=== PATIENT | female | born 1975 | race Two or more races ===

== ENCOUNTER → 2016-07-22 | Outpatient (CLI) | payer OTHER ==
[2016-07-22 14:20] LABS: Basophils # (A) 0.1 k/uL (0-0.2); Basophils % (A) 1 %; CH 32.5; CHCM 32.9; Eosinophils # (A) 0.1 k/uL (0-0.7); Eosinophils % (A) 2 %; HCT 40.4 % (34.0-46.0); HDW 2.06; HGB 13.1 gm/dL (11.4-16.0); Luc # (Auto) 0.13; Luc % (Auto) 2; Lymphocytes # (A) 1.5 k/uL (1.0-4.8); Lymphocytes % (A) 26 %; MCHC 32.3 g/dL (31.0-37.0); MCV 99.1 fL (80.0-100.0); Monocytes # (A) 0.3 k/uL (0-1.0); Monocytes % (A) 4 %; Neutrophils # (A) 3.8 k/uL (1.3-7.7); Neutrophils % (A) 65 %; RBC 4.07 m/uL (3.80-5.40); WBC 5.9 k/uL (3.8-10.6); WBC (Perox) 5.99
== END | disposition home or self-care (01) ==
LOC: LABPAT 13:37
PROVIDERS: ATTEND Obstetrics & Gynecology
DX: Z01.812 Encounter for preprocedural laboratory examination (principal); O03.9 Complete or unspecified spontaneous abortion without complication; Z3A.00 Weeks of gestation of pregnancy not specified
CPT/HCPCS: 85025; 86900; 86901

== ENCOUNTER 2016-07-23 06:02 | Day surgery (SDC) | payer OTHER ==
[~2016-07-23 06:02] MED LIST: DEXAMETHASONE SOD PHOSPHATE 10 MG/ML 1 ML VIAL IV ONE; HYDROmorphone 1 MG/ML 1 ML SYRINGE IVP PRN; LACTATED RINGERS 1,000 ML IV SCH; MIDAZOLAM 2 MG/2 ML VIAL IV PRN; ONDANSETRON 4 MG/2 ML VIAL IVP ONE; Pre Op ABX Message 1 EACH MISC MISCELLANE ONE
[2016-07-23] MEDS ORDERED: LIDOCAINE 1% 20 ML VIAL (10MG/ML) FOR IV START INTRADERMA ONE (06:37)
[2016-07-23] MEDS ORDERED: PROPOFOL 10 MG/ML 20 ML VIAL IV ONE (06:59)
[2016-07-23] MEDS ORDERED: LIDOCAINE 1% INJ 10MG/ML (20 ML MDV) ONE (06:59)
[2016-07-23] MEDS ORDERED: fentaNYL (PF) 50 MCG/ML 2 ML AMP ONE (06:59)
[2016-07-23] MEDS ORDERED: KETOROLAC 30 MG/ML 1 ML VIAL ONE (06:59)
[2016-07-23] MEDS ORDERED: MIDAZOLAM 2 MG/2 ML VIAL ONE (06:59)
--- NOTE | 2016-07-23 07:19 | P.OP ---
Date of Procedure: 07/23/16 Preoperative Diagnosis: Missed Ab, , advanced maternal age. Postoperative Diagnosis: Same, pathology pending Procedure(s) Performed: Suction dilatation and curettage of the uterus Anesthesia: GUERLINE Surgeon: Christine Lane Estimated Blood Loss (ml): 100 IV fluids (ml): 300 Urine output (ml): 100 Pathology: other (Products of conception) Condition: stable Disposition: PACU Description of Procedure: Patient is brought to the operating suite and a general anesthetic is administered without difficulty per the anesthesia staff. She's placed in the dorsal lithotomy position. The cervix, vagina, perineum are all prepped and draped in the usual sterile fashion. The appropriate timeout is performed to assure proper patient and procedural identification. Blood type is A+. Examination under anesthesia reveals a anteverted uterus, possibly 12 weeks' size, adnexa negative bilaterally. The weighted speculum was placed into the vagina. The bladder is drained for approximately 100 mL of clear yellow urine. The anterior lip of the cervix is gently grasped with a double-tooth tenaculum. The uterus sounds to a depth of 12 cm in the anteverted position. Cervix was gently and systematically dilated using Hanks dilators. An 8 curved sterile suction curette is placed to the dome of the fundus, and under appropriate suction pressures the uterus is curettaged. A medium sharp curette is used to assure that all products of conception had been removed. No intrauterine septa or defects are appreciated, no fibroids. The tenaculum was removed. The cervix is clean and dry. All sponge needle and enhancement counts are correct at the end of the procedure. Patient is brought back to recovery room in very good condition with stable vital signs including blood pressure 111/70, pulse 63. The products of conception tissue are sent to pathology in a fresh state, patient is wishing chromosomal analysis. Patient is given Toradol prior to leaving the operative suite. She will follow-up in the office with me in 2 weeks. Written instructions are provided.
[2016-07-23 07:29] VITALS: TEMP 97.8
[2016-07-23] MEDS ORDERED: Acetaminophen-Codeine 300-30mg TAB PO ONE (08:44)
[2016-07-23 08:55] VITALS: BP 125/74; PULSE 59; RESP 16
[2016-07-31 13:05] LABS: Mis test requested (Non-blood) Chromosome Analysis
== END 2016-07-23 09:29 | disposition home or self-care (01) ==
LOC: OR 06:02
PROVIDERS: ATTEND Obstetrics & Gynecology
DX: O02.1 Missed abortion (principal); G43.909 Migraine, unspecified, not intractable, without status migrainosus; Z79.899 Other long term (current) drug therapy; Z88.2 Allergy status to sulfonamides; Z88.8 Allergy status to other drugs, medicaments and biological substances
CPT/HCPCS: 86900; 86901; 88305; 59820; J2250; J1100; J2405; J2001; J3010; J1885; J2704; 88233; 88262

== ENCOUNTER → 2016-10-08 | Outpatient (CLI) | payer OTHER ==
[2016-10-09 07:28] LABS: Cardiolipin Ab IgG <9.0 GPL (<15); Cardiolipin Ab IgM <9.0 MPL (<12.5)
[2016-10-09 13:34] LABS: Protein C (Activity) 114 % (70 - 130); Protein S Antigen 98 % (50 - 140)
== END ==
LOC: LABWHC1 11:11
PROVIDERS: ATTEND Obstetrics & Gynecology Reproductive Endocrinology
DX: N96 Recurrent pregnancy loss (principal)
CPT/HCPCS: 36415; 81240; 81241; 81291; 83090; 85300; 85303; 85305; 85613; 85730; 86146; 86147

== ENCOUNTER 2016-11-16 11:39 | Inpatient (IN) | payer OTHER ==
[2016-11-16] MEDS ORDERED: SODIUM CHLORIDE 0.9% 1,000 ML IV STA ×2 (12:48→14:27)
[2016-11-16] MEDS ORDERED: HYDROmorphone 1 MG/ML 1 ML SYRINGE IVP STA (12:49)
[2016-11-16] MEDS ORDERED: ONDANSETRON 4 MG/2 ML VIAL IVP STA (12:49)
--- NOTE | 2016-11-16 12:53 | ED ---
General Adult HPI <Gamaliel Luna - Last Filed: 11/16/16 15:00> - General Source: patient, RN notes reviewed Mode of arrival: ambulatory Limitations: no limitations <Romulo Clarke - Last Filed: 11/16/16 15:44> - General Chief complaint: Abdominal Pain Stated complaint: Abd Pain Time Seen by Provider: 11/16/16 12:39 - History of Present Illness Initial comments: Patient 41-year-old female who presents emergency room today with a chief complaint of increased left lower quadrant pain. She does admit that she was given methotrexate on 11/06/2016 for a ectopic . She states she was doing well until last night started having increased pain to 2 of her oxycodone. States she was able to get to sleep. States she went to work and pain increased approximately 9 AM. She states she called her DISPATCHER REFINERY who is out of [facility] was advised to head to the emergency room for evaluation. Patient states she did not have a ride to go down to [place] so she came here to the nearest ER. She admits to pain left lower quadrant. States she felt lightheaded and dizzy earlier. Denies any other complaints currently. ( Romulo Clarke) - Related Data Home Medications Medication Instructions Recorded Confirmed Levothyroxine Sodium [Synthroid] 100 mcg PO DAILY 11/16/16 11/16/16 Allergies Allergy/AdvReac Type Severity Reaction Status Date / Time codeine Allergy Rash/Hives Verified 11/16/16 12:57 hydromorphone [From Dilaudid] Allergy Itching Verified 11/16/16 14:35 latex Allergy Itching Verified 11/16/16 12:57 medroxyprogesterone acetate Allergy Rash/Hives Verified 11/16/16 12:57 [From Provera] Sulfa (Sulfonamide Allergy Rash/Hives Verified 11/16/16 12:57 Antibiotics) adhesive AdvReac Unknown Unknown Verified 11/16/16 12:57 Review of Systems ROS Other: All systems not noted in ROS Statement are negative. <Gamaliel Luna - Last Filed: 11/16/16 15:00> ROS Other: All systems not noted in ROS Statement are negative. <Romulo Clarke - Last Filed: 11/16/16 15:44> ROS Statement: Those systems with pertinent positive or pertinent negative responses have been documented in the HPI. Past Medical History Past Medical History: Osteoarthritis (OA) Additional Past Medical History / Comment(s): ENVIRONMENTAL ALLERGIES., past hx. of GESTATIONAL DIABETES., THORACIC OUTLET SYNDROME., MIGRAINES. current miscarriage History of Any Multi-Drug Resistant Organisms: None Reported Additional Past Surgical History / Comment(s): FIRST RIB REMOVED FOR THORACIC OUTLET SYNDROME. cyst removed from sabianism Past Anesthesia/Blood Transfusion Reactions: No Reported Reaction Past Psychological History: No Psychological Hx Reported Smoking Status: Never smoker Past Alcohol Use History: None Reported Additional Past Alcohol Use History / Comment(s): . Past Drug Use History: None Reported - Past Family History Mother Family Medical History: No Reported History <Romulo Clarke - Last Filed: 11/16/16 15:44> General Exam <Gamaliel Luna - Last Filed: 11/16/16 15:00> Limitations: no limitations <Romulo Clarke - Last Filed: 11/16/16 15:44> - General Exam Comments Initial Comments: General: The patient is awake and alert, in no distress, and does not appear acutely ill. Eye: Pupils are equal, round and reactive to light, extra-ocular movements are intact. No nystagmus. There is normal conjunctiva bilaterally. No signs of icterus. Ears, nose, mouth and throat: There are moist mucous membranes and no oral lesions. Neck: The neck is supple, there is no tenderness or JVD. Cardiovascular: There is a regular rate and rhythm. No murmur, rub or gallop is appreciated. Respiratory: Lungs are clear to auscultation, respirations are non-labored, breath sounds are equal. No wheezes, stridor, rales, or rhonchi. Gastrointestinal: Normal appearance. Normal bowel sounds. Soft on palpation. Patient does have tenderness left lower quadrant. No Rebound tenderness. No guarding. Musculoskeletal: Normal ROM, no tenderness. Strength 5/5. Sensation intact. Pulses equal bilaterally 2+. Neurological: A&O x 3. CN II-XII intact, There are no obvious motor or sensory deficits. Coordination appears grossly intact. Speech is normal. Skin: Skin is warm and dry and no rashes or lesions are noted. Psychiatric: Cooperative, appropriate mood & affect, normal judgment. (Romulo Clarke) Course <Gamaliel Luna - Last Filed: 11/16/16 15:00> <Romulo Clarke - Last Filed: 11/16/16 15:44> Vital Signs 11/16/16 11/16/16 11/16/16 11:40 13:42 14:32 Temperature 98.4 F Pulse Rate 84 65 52 L Respiratory 20 18 16 Rate Blood Pressure 121/69 124/56 117/65 O2 Sat by Pulse 99 98 100 Oximetry 11/16/16 14:59 Temperature Pulse Rate 56 L Respiratory 16 Rate Blood Pressure 124/90 O2 Sat by Pulse 99 Oximetry - Reevaluation(s) Reevaluation #1: 11/16/16 13:50 Called in by nursing staff patient experiences some pain to the left side of her neck. She states feels like a spasm. She states she's had similar symptoms when she takes Imitrex for headaches at home. States usually last 5 minutes goes away. She does admit that this seems to be more intense. 11/16/16 13:55 Patient states that at this time experiencing some itching sensation to the back of her neck. Patient was given 50 mg of Benadryl 20 mg of Pepcid continue to be monitored closely here. Vitals are stable. 11/16/16 14:05 Patient reexamined at this time states that they pressure and pain to the left side of the neck has improved after medications of Benadryl, Pepcid, and Solu- Medrol. Patient about to begin ultrasound which is being done at bedside here in the emergency room by field operations technician. 11/16/16 14:40 Unofficial report read and does show a vascular area on the left ovary that may be consistent with ectopic there is free fluid present. Patient resting comfortably currently in stretcher. Vitals are stable. Case been discussed with attending physician Dr. Luna. 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 11/16/16 15:[address] is here in the ER to see patient. 11/16/16 15:38 Patient seen here in the emergency room by hyperplastic patient to the OR. ( Romulo Clarke) Medical Decision Making - Lab Data Result diagrams: 11/16/16 13:30 11/16/16 13:30 <Gamaliel Luna - Last Filed: 11/16/16 15:00> - Lab Data Result diagrams: 11/16/16 13:30 11/16/16 13:30 <VinceRomulo - Last Filed: 11/16/16 15:44> - Medical Decision Making Medical decision-making. This is a 41-year-old female scone the emergency room because of pain to left lower quadrant. Recently the patient was started on methotrexate and 6217 for ectopic . The patient had discomfort last night took 2 pain pills. Tonight this morning when she went to work she had discomfort and spotting. She's come the emergency room. In emergency room the patient was hydrated. Her vital signs show temperature 90.8 pulse 52 respiratory rate 16 pulse ox on percent room air blood pressure 117/65. Labs show white count of 5.4 hemoglobin 12.7 medical 39, potassium 4.0 with a BUN 15 creatinine 0.57 and GFR greater than 60. Glucose 105. Beta is 4768. No previous betas available. Patient did have an ultrasound examination was found to be tender especially in the left lower quadrant. The patient's ultrasound showed adnexa; with free fluid in the posterior cul-de-sac, the right adnexa measuring 3.9 x 2.9 0.3 0.3 irregular complex nonvascular area. Left adnexa 3.8 -13.4 cm hypoechoic vascular area, possible left ovary with complex mass and there is a presence of free fluid. As interpreted by Dr. pyle. The case discussed with Dr. Torres she'll see the patient in the emergency room. can take morphine she had been given Dilaudid 1 mg IV caused a reaction that needed to be treated with IV Benadryl, Pepcid and Solu-Medrol. The itchiness and rash went away. Patient persists in having discomfort to the left lower quadrant. Dr. Luna (Gamaliel Luna) - Lab Data Lab Results 11/16/16 11/16/16 11/16/16 Range/Units 13:30 13:30 13:30 WBC 5.4 (3.8-10.6) k/uL RBC 3.92 (3.80-5.40) m/uL Hgb 12.7 (11.4-16.0) gm/dL Hct 39.5 (34.0-46.0) % MCV 101.0 H (80.0-100.0) fL MCH 32.5 (25.0-35.0) pg MCHC 32.2 (31.0-37.0) g/dL RDW 12.3 (11.5-15.5) % Plt Count 209 (150-450) k/uL Neutrophils % 67 % Lymphocytes % 23 % Monocytes % 6 % Eosinophils % 1 % Basophils % 1 % Neutrophils # 3.6 (1.3-7.7) k/uL Lymphocytes # 1.2 (1.0-4.8) k/uL Monocytes # 0.3 (0-1.0) k/uL Eosinophils # 0.1 (0-0.7) k/uL Basophils # 0.0 (0-0.2) k/uL Sodium 140 (137-145) mmol/L Potassium 4.0 (3.5-5.1) mmol/L Chloride 103 (98-107) mmol/L Carbon Dioxide 25 (22-30) mmol/L Anion Gap 12 mmol/L BUN 15 (7-17) mg/dL Creatinine 0.57 (0.52-1.04) mg/dL Est GFR (MDRD) Af Amer >60 (>60 ml/min/1.73 sqM) Est GFR (MDRD) Non-Af >60 (>60 ml/min/1.73 sqM) Glucose 105 H (74-99) mg/dL Calcium 9.6 (8.4-10.2) mg/dL Total Bilirubin 0.5 (0.2-1.3) mg/dL AST 20 (14-36) U/L ALT 25 (9-52) U/L Alkaline Phosphatase 45 (38-126) U/L Total Protein 7.4 (6.3-8.2) g/dL Albumin 4.4 (3.5-5.0) g/dL HCG, Quant 4768.9 mIU/mL Urine Color Yellow Urine Appearance Clear (Clear) Urine pH 7.0 (5.0-8.0) Ur Specific [place] 1.009 (1.001-1.035) Urine Protein Negative (Negative) Urine Glucose (UA) Negative (Negative) Urine Ketones Negative (Negative) Urine Blood Moderate H (Negative) Urine Nitrite Negative (Negative) Urine Bilirubin Negative (Negative) Urine Urobilinogen <2.0 (<2.0) mg/dL Ur Leukocyte Esterase Trace H (Negative) Urine RBC 142 H (0-5) /hpf Urine WBC 11 H (0-5) /hpf Ur Squamous Epith Cells 2 (0-4) /hpf Urine Bacteria Rare H (None) /hpf Urine Mucus Rare H (None) /hpf Disposition <Gamaliel Luna - Last Filed: 11/16/16 15:00> Time of Disposition: 15:42 <Romulo Clarke - Last Filed: 11/16/16 15:44> Clinical Impression: Ectopic Disposition: ADMITTED IP TO THIS HOSP Condition: Stable Referrals: Christine Lane MD [STAFF PHYSICIAN] - 1-2 days
[2016-11-16 13:49] LABS: Basophils % (A) 1 %; CH 33.1; CHCM 32.9; Eosinophils # (A) 0.1 k/uL (0-0.7); Eosinophils % (A) 1 %; HCT 39.5 % (34.0-46.0); HDW 2.02; HGB 12.7 gm/dL (11.4-16.0); Luc # (Auto) 0.12; Luc % (Auto) 2; Lymphocytes # (A) 1.2 k/uL (1.0-4.8); Lymphocytes % (A) 23 %; MCH 32.5 pg (25.0-35.0); MCHC 32.2 g/dL (31.0-37.0); Mean Platelet Volume 7.3; Monocytes # (A) 0.3 k/uL (0-1.0); Monocytes % (A) 6 %; Neutrophils # (A) 3.6 k/uL (1.3-7.7); Neutrophils % (A) 67 %; RBC 3.92 m/uL (3.80-5.40); RDW 12.3 % (11.5-15.5); WBC 5.4 k/uL (3.8-10.6); WBC (Perox) 5.49
[2016-11-16 13:53] LABS: Appearance,Urine Clear (Clear); Bacteria,Urine Rare /hpf; Bilirubin,Urine Negative (Negative); Glucose,Urine (UA) Negative (Negative); Ketones,Urine Negative (Negative); Leukocyte Esterase,Urine Trace (Negative); Mucus,Urine Rare /hpf; Nitrite,Urine Negative (Negative); Particle Count 2874; Protein,Urine Negative (Negative); RBC,Urine 142 /hpf (0-5); Specific Gravity,Urine 1.009 (1.001-1.035); Squamous Epithelial Cell,Urine 2 /hpf (0-4); UA Billing (MACRO vs. MICRO) MICRO; Urobilinogen,Urine <2.0 mg/dL (<2.0); WBC,Urine 11 /hpf (0-5)
[2016-11-16] MEDS ORDERED: FAMOTIDINE 20 MG/2 ML VIAL IV STA (13:54)
[2016-11-16] MEDS ORDERED: diphenhydrAMINE 50 MG/ML 1 ML VIAL IVP STA (13:54)
[2016-11-16] MEDS ORDERED: methylPREDNISolone SOD SUCCI 125 MG/2 ML VIAL IV STA (13:57)
[2016-11-16 14:06] LABS: ALT 25 U/L (9-52); AST 20 U/L (14-36); Alkaline Phosphatase 45 U/L (38-126); Anion Gap 12 mmol/L; Blood Urea Nitrogen 15 mg/dL (7-17); Calcium 9.6 mg/dL (8.4-10.2); Carbon Dioxide 25 mmol/L (22-30); Chloride 103 mmol/L (98-107); Glucose 105 mg/dL (74-99); Non-African American GFR(MDRD) >60 (>60 ml/min/1.73 sqM); Sodium 140 mmol/L (137-145); Total Bilirubin 0.5 mg/dL (0.2-1.3); Total Protein 7.4 g/dL (6.3-8.2)
[2016-11-16 14:22] LABS: HCG,Quantitative Serum 4768.9 mIU/mL
--- NOTE | 2016-11-16 14:43 | US ---
EXAMINATION TYPE: US OB <=14 wks transvag DATE OF EXAM: 11/16/2016 COMPARISON: NONE CLINICAL HISTORY: Pain. History of ectopic, patient was given Methotrexate on 11/06/16, left pelvic p ain and spotting x 2 days, 7, para 2, miscarriage 3, ectopic 2 EXAM PERFORMED: Transvaginal (TV) and Transabdominal (TA) EXAM MEASUREMENTS: GESTATIONAL AGE / DATING Physician Established: Not established Dates by LMP: (5 weeks/2 days) EDC: 07/17/2016 Dates by First Scan: No previous Dates by Current Scan for: No IUP seen at this time MATERNAL ANATOMY Uterus: 7.7 x 3.7 x 4.4cm, anteverted Endometrium: 0.6cm Right Ovary: not seen with certainty at this time Left Ovary: not seen with certainty at this time Post CDS / Adnexa: free fluid in posterior cul-de-sac, right adnexa: 3.9 x 2.9 x 3.3cm irregular comp iveth non vascular area, left adnexa: 3.8 x 2.1 x 3.4cm hypoechoic vascular area, possible left ovary w ith complex mass Presence of free fluid: yes GESTATION / SURVEY IUP: No IUP seen at this time Date of LMP: 10/10/2016 Beta HcG (if available): 4,768.9 No IUP seen at this time, free fluid in posterior cul-de-sac, right adnexa: 3.9 x 2.9 x 3.3cm irregul ar complex non vascular area, left adnexa: 3.8 x 2.1 x 3.4cm hypoechoic vascular area, possible left ovary with complex mass IMPRESSION: No intrauterine identified. Free fluid is seen within the cul-de-sac with 3.9 cm irregular complex right adnexal mass and 3.8 cm possible left adnexal mass. If there is a positive beta hCG ect opic would be within the differential diagnosis. Otherwise consider neoplasms of the ovary. Correlate with serial beta hCG and pelvic ultrasound.
[2016-11-16] MEDS: SODIUM CHLORIDE 0.9% 1,000 ML IV ONE ×2 (15:57→20:42)
--- NOTE | 2016-11-16 16:05 | P.HPOB ---
History of Present Illness H&P Date: 11/16/16 Chief Complaint: Severe abdominal and pelvic pain This is a 41-year-old white female 7 para 2041 with a known left ectopic ., Treated by methotrexate intramuscularly on 10/31/2016. Patient is being followed by Dr. Alex Spann at [facility], infertility specialist. Patient presents with severe abdominal pain which woke her up at 1:30 this morning. She took 2 hydrocodone, went back to bed. She attempted to go to work this morning but instead came to the emergency room with severe unrelenting bilateral lower quadrant pain. She states the pain is worse with movement. Ultrasound today reveals fluid in the cul-de-sac, complex mass of the left ovary measuring 3.8 x 2.1 x 3.4 cm, along with an irregular complex mass of the right ovary 3.9 x 2.9 x 3.3 cm. Patient last had fluid at 0645, eggs and toes. She had black coffee at 9:00 this morning but has been nothing by mouth since that time. She also discusses increasing pelvic pressure , "as if I have to p.m." Past medical history is significant for migraine headaches, thoracic syndrome, and recurrent miscarriages. Past surgical history suction D&C for missed AB 2, ribs removed for thoracic outlet syndrome, breast reduction. Family history significant for diabetes, glaucoma and hypothyroidism. Current medications vitamins daily. ALLERGIES include codeine to which reports a rash and itching, Provera to which she reports a rash and itching, sulfa medications to which reports a rash and hives, and seasonal ALLERGIES. 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 Past obstetric history is significant for 2 spontaneous vaginal deliveries, 3 spontaneous miscarriages, 1 ectopic , laterality uncertain. On exam this is a pleasant white female who is 5 foot 6 inches, 140 pounds, blood pressure 124/90, pulse 56, respirations 16, 99% O2 saturation. HEENT examination is negative. Breast exam is negative. Cardiac exam reveals regular rate and rhythm without murmur click or rub. Chest is clear to auscultation in all virgen anteriorly and posteriorly. Abdomen is slightly distended, she has severe pain 9 out of 10 in both lower quadrants with rebound noted. Pelvic exam reveals a small mobile cervix, uterus is mobile midline and small, bilateral adnexal regions are quite tender, left greater than right, with rebound and guarding noted. Extremities reveal no edema. Labs include beta of 4768, blood type A+, hemoglobin 12.7. Impression: Suspected left ectopic ruptured . Long-standing history of infertility, but history of previous ectopic also noted. Plan: I have discussed the case with Dr. Alex Spann at [facility], infertility specialists. He supports the plan for mini laparotomy, left salpingectomy. I have discussed this with the patient in detail, risks and benefits of surgery are reviewed. She understands our discussion and consents to left salpingectomy and surgery as deemed necessary. The risks of anesthesia, bleeding, infection, perforation or damage to other pelvic organs as well as bowel and bladder are all reviewed. I will not attempt this case laparoscopically secondary to the high likelihood of hemoperitoneum. Past Medical History Past Medical History: Osteoarthritis (OA) Additional Past Medical History / Comment(s): ENVIRONMENTAL ALLERGIES., past hx. of GESTATIONAL DIABETES., THORACIC OUTLET SYNDROME., MIGRAINES. current miscarriage History of Any Multi-Drug Resistant Organisms: None Reported Additional Past Surgical History / Comment(s): FIRST RIB REMOVED FOR THORACIC OUTLET SYNDROME. cyst removed from congregational Past Anesthesia/Blood Transfusion Reactions: No Reported Reaction Past Psychological History: No Psychological Hx Reported Smoking Status: Never smoker Past Alcohol Use History: None Reported Additional Past Alcohol Use History / Comment(s): . Past Drug Use History: None Reported - Past Family History Mother Family Medical History: No Reported History Medications and Allergies Home Medications Medication Instructions Recorded Confirmed Type Levothyroxine Sodium [Synthroid] 100 mcg PO DAILY 11/16/16 11/16/16 History Allergies Allergy/AdvReac Type Severity Reaction Status Date / Time codeine Allergy Rash/Hives Verified 11/16/16 12:57 hydromorphone [From Dilaudid] Allergy Itching Verified 11/16/16 14:35 latex Allergy Itching Verified 11/16/16 12:57 medroxyprogesterone acetate Allergy Rash/Hives Verified 11/16/16 12:57 [From Provera] Sulfa (Sulfonamide Allergy Rash/Hives Verified 11/16/16 12:57 Antibiotics) adhesive AdvReac Unknown Unknown Verified 11/16/16 12:57 Exam - Vital Signs Vital signs: Vital Signs Temp Pulse Resp BP Pulse Ox 11/16/16 14:59 56 L 16 124/90 99 11/16/16 14:32 52 L 16 117/65 100 11/16/16 13:42 65 18 124/56 98 11/16/16 11:40 98.4 F 84 20 121/69 99 Intake and Output 11/16/16 11/16/16 11/16/16 06:59 14:59 22:59 Other: Weight 68.039 kg Patient Weight 11/17/16 06:59 Weight 68.039 kg See full dictation under HPI Results Result Diagrams: 11/16/16 13:30 11/16/16 13:30 Abnormal Lab Results - Last 24 Hours (Table) 11/16/16 11/16/16 11/16/16 Range/Units 13:30 13:30 13:30 MCV 101.0 H (80.0-100.0) fL Glucose 105 H (74-99) mg/dL Urine Blood Moderate H (Negative) Ur Leukocyte Esterase Trace H (Negative) Urine RBC 142 H (0-5) /hpf Urine WBC 11 H (0-5) /hpf Urine Bacteria Rare H (None) /hpf Urine Mucus Rare H (None) /hpf Assessment and Plan Plan: For mini laparotomy, left salpingectomy, possible surgery on the right tube, surgery as deemed necessary. Time with Patient: Greater than 30
[2016-11-16] MEDS ORDERED: KETOROLAC 30 MG/ML 1 ML VIAL ONE (16:23)
[2016-11-16] MEDS ORDERED: GLYCOPYRROLATE 0.2 MG/ML 2 ML VIAL ONE (16:23)
[2016-11-16] MEDS ORDERED: MIDAZOLAM 2 MG/2 ML VIAL ONE (16:23)
[2016-11-16] MEDS ORDERED: ROCURONIUM BROMIDE 10 MG/ML 10 ML VIAL IV ONE (16:23)
[2016-11-16] MEDS ORDERED: LIDOCAINE 1% INJ 10MG/ML (20 ML MDV) ONE (16:23)
[2016-11-16] MEDS ORDERED: SODIUM CHLORIDE 0.9% 50 ML with ceFAZolin 2,000 MG IV ONE ×2 (16:23)
[2016-11-16] MEDS ORDERED: ceFAZolin 1,000 MG VIAL ONE (16:23)
[2016-11-16] MEDS ORDERED: ONDANSETRON 4 MG/2 ML VIAL ONE (16:23)
[2016-11-16] MEDS ORDERED: PROPOFOL 10 MG/ML 20 ML VIAL IV ONE (16:23)
[2016-11-16] MEDS ORDERED: SUCCINYLCHOLINE CHLORIDE 100 MG/5 ML SYR IV ONE (16:23)
[2016-11-16] MEDS ORDERED: fentaNYL (PF) 50 MCG/ML 2 ML AMP ONE (16:23)
[2016-11-16] MEDS ORDERED: NEOSTIGMINE 1 MG/ML 10 ML VIAL ONE (16:23)
[2016-11-16] MEDS ORDERED: SODIUM CHLORIDE 0.9% 1,000 ML IV ONE ×2 (16:45)
[2016-11-16] MEDS ORDERED: LACTATED RINGERS 1,000 ML IV ONE (17:04)
[2016-11-16] MEDS ORDERED: ZOLPIDEM 5 MG TAB PO PRN (17:09)
[2016-11-16] MEDS ORDERED: METOCLOPRAMIDE 5 MG/ML 2 ML VIAL IVP PRN (17:09)
[2016-11-16] MEDS ORDERED: ONDANSETRON 4 MG/2 ML VIAL IVP PRN (17:09)
[2016-11-16] MEDS ORDERED: SIMETHICONE 80 MG CHEWABLE PO PRN (17:09)
[2016-11-16] MEDS ORDERED: diphenhydrAMINE 50 MG/ML 1 ML VIAL IVP PRN (17:09)
--- NOTE | 2016-11-16 17:09 | P.OP ---
Date of Procedure: 11/16/16 Preoperative Diagnosis: Suspected left ruptured ectopic Postoperative Diagnosis: Hemoperitoneum, ruptured left ectopic Procedure(s) Performed: Minilaparotomy, left salpingectomy Implants: Anesthesia: MINDAA Surgeon: Christine Lane Estimated Blood Loss (ml): 300 IV fluids (ml): 1,200 Urine output (ml): 450 Pathology: other (Left fallopian tube) Condition: stable Disposition: PACU Indications for Procedure: Operative Findings: Description of Procedure: Patient is brought to the operating suite where a general anesthetic is administered. She's placed in the dorsal supine position. The abdomen is prepped and draped in usual sterile fashion. The appropriate timeout is performed to assure proper patient and procedural identification. 2 g of Ancef are given. Pierce catheter is placed to direct drainage. A low transverse suprapubic incision is made approximately 5 cm in length. Bovie catheter is used to take down the incision through the subcutaneous tissue which is approximately 3-4 cm deep. Fascia is isolated, scored, and extended bilaterally with curved Li scissors. Peritoneum is next identified and incised. Upon entering the peritoneal cavity approximate 300 mL of blood and clot are encountered. The abdomen is gently packed with the aid of the O'Abimael -O'Wells retractor and sterile sponges. The left fallopian tube is grasped at its base, walked up with [place] clamps and the ectopic is identified. A Ada clamp was used across the tube and through the mesal salpinx and the left fallopian tube is removed and sent to pathology for evaluation. The pedicle is tied with a 0 Vicryl suture, flashed, and retied for excellent hemostasis. The left ovary appears normal to inspection. At this time the pelvis was generously irrigated. The right fallopian tube and ovary are visualized in their entirety and appeared completely normal to inspection. The uterus itself is small, smooth, no evidence of fibroid tumors. There is no evidence of pelvic endometriosis. When I am satisfied that the pelvis is clean and dry, a piece of Interceed is used to wrap around the base of the left ovary across the area of surgery to avoid adhesion formation. Peritoneum was allowed to close by secondary intention. The fascia is closed in a running stitch of 0 Vicryl suture. Subcutaneous tissue is irrigated, noted to be clean and dry. It is reapproximated with 3-0 Vicryl in a running fashion. 4-0 undyed Vicryl is used in a subcuticular manner for final skin closure. Steri-Strips and Mastisol are applied to the wound. Dressing is applied. Pierce is noted to be draining clear urine. Patient is brought back to recovery room in very good condition with stable vital signs including a pulse of 57, blood pressure 120/70, 100% O2 saturation. Blood type is Rh+, no RhIg necessary.
[2016-11-16] MEDS ORDERED: NALOXONE 0.4 MG/ML 1 ML VIAL IV PRN ×2 (17:11→17:12)
[2016-11-16] MEDS ORDERED: HYDROmorphone PCA 5 MG/25 ML SYRINGE IV PRN (17:12)
[2016-11-16] MEDS ORDERED: MORPHINE SULFATE 4 MG/ML SYRINGE IV PRN (17:16)
[2016-11-16] MEDS ORDERED: LACTATED RINGERS 1,000 ML IV SCH (17:30)
[2016-11-16] MEDS: MORPHINE SULFATE 2 MG/ML SYRINGE IV PRN ×5 (17:35→17:55)
[2016-11-16] MEDS: MEPERIDINE 50 MG/ML SYRINGE IVP ONE ×2 (18:02→18:18)
[2016-11-16] MEDS: MORPHINE PCA 30 MG/30 ML SYRINGE IV PRN (19:31)
[2016-11-16 22:09] VITALS: BMI 23.5
[2016-11-16] MEDS: KETOROLAC 30 MG/ML 1 ML VIAL IVP PRN (23:56)
[2016-11-17] MEDS: KETOROLAC 30 MG/ML 1 ML VIAL IVP PRN ×2 (06:28→12:51)
[2016-11-17] MEDS: LEVOTHYROXINE 100 MCG TAB PO SCH (06:28)
--- NOTE | 2016-11-17 07:36 | P.DS ---
Providers Date of admission: 11/16/16 15:48 Expected date of discharge: 11/17/16 Attending physician: Christine Lane Primary care physician: [facility] Course: This is a 41-year-old white female who presented to the emergency room with a known left ectopic , status post methotrexate treatment through [facility] 10 days ago, with severe abdominal pain. Workup including ultrasound was consistent with ruptured ectopic and the decision was made to proceed with mini laparotomy. I discussed the case with Dr. Alex Spann and we elected to proceed with left salpingectomy. Please see my dictated history and physical for details. Patient was taken to the operating room, a small low transverse incision was made in the left salpingectomy was performed. There was blood in the pelvis upon entering, approximate 300 mL's. Left ovary appeared normal, right tube and ovary appeared normal, uterus was within normal limits. No obvious evidence of adhesions or endometriosis. The stump of the left tube was wrapped gently with Interceed and placed back into the pelvis. Please see my dictated operative note for details. This morning the patient appears well. She is voiding, ambulating, passing flatus without difficulty. Vital signs are stable and she is afebrile. Pain is well-controlled with ibuprofen, incision is clean and dry, intact, Steri- Strips applied. There is minimal abdominal tenderness, no rebound or guarding. Patient will be discharged home later today. I have reminded her no intercourse , tampons or douching. She will use ibuprofen products or Aleve as needed for pain [id number]. I've asked her to call me with any fevers shakes or chills, foul smelling vaginal drainage, with any redness drainage or bleeding of the incision, with any pain not alleviated by [id number] products, or indeed with any concerns. No heavy lifting, no driving for 2 weeks. She will follow-up with me in the office in 2 weeks. Patient Condition at Discharge: Good Plan - Discharge Summary New Discharge Prescriptions: No Action Levothyroxine Sodium [Synthroid] 100 mcg PO DAILY Discharge Medication List Levothyroxine Sodium [Synthroid] 100 mcg PO DAILY 11/16/16 [History] Follow up Appointment(s)/Referral(s): Christine Lane MD [STAFF PHYSICIAN] - 2 Weeks Patient Instructions/Handouts: Salpingectomy (GEN) Discharge Disposition: HOME SELF-CARE
[2016-11-17] MEDS ORDERED: HYDROcodone/APAP 5-325MG 1 EACH TAB PO PRN ×2 (11:20)
[2016-11-17] MEDS ORDERED: hydrOXYzine HCL 50 MG/ML 1 ML VIAL IM ONE (14:45)
[2016-11-17 16:15] LABS: Basophils % (A) 0 %; CH 33.1; CHCM 33.6; Eosinophils # (A) 0.2 k/uL (0-0.7); Eosinophils % (A) 1 %; HCT 33.1 % (34.0-46.0); HDW 2.16; HGB 11.2 gm/dL (11.4-16.0); Luc # (Auto) 0.17; Luc % (Auto) 1; Lymphocytes # (A) 1.5 k/uL (1.0-4.8); Lymphocytes % (A) 12 %; MCH 33.7 pg (25.0-35.0); MCV 99.1 fL (80.0-100.0); Mean Platelet Volume 7.6; Monocytes # (A) 0.6 k/uL (0-1.0); Monocytes % (A) 4 %; Neutrophils # (A) 10.6 k/uL (1.3-7.7); Neutrophils % (A) 81 %; RBC 3.34 m/uL (3.80-5.40); WBC (Perox) 13.62
--- NOTE | 2016-11-17 16:37 | P.PN ---
Subjective Principal diagnosis: Severe abdominal pain This morning patient felt well, pain was minimal. Plan was for discharge home. She ambulated the hallways several hours ago without issue. Upon reentering the bed, she began to have abdominal pain. She states that the past several hours the pain has increased to 10 out of 10. Toradol has been given, [place] has been given, 75 mg of Vistaril are given. Objective - Vital Signs Vital signs: Vital Signs Temp 97.8 F 11/17/16 13:20 Pulse 53 L 11/17/16 13:20 Resp 16 11/17/16 13:20 BP 121/65 11/17/16 13:20 Pulse Ox 98 11/17/16 13:20 Intake & Output 11/16/16 11/17/16 11/17/16 18:59 06:59 18:59 Intake Total 1600 450 Output Total 200 2800 500 Balance 1400 -2800 -50 Weight 68.039 kg 68.039 kg Intake: IV 1600 Oral 450 Output: Urine 200 2800 500 Uretheral (Pierce) 1100 Other: Voiding Method Indwelling Catheter # Voids 3 - Constitutional General appearance: Present: average body habitus, cooperative, severe distress - EENT Eyes: Present: PERRLA ENT: Present: hearing grossly normal - Neck Neck: Present: normal ROM - Respiratory Respiratory: bilateral: CTA - Cardiovascular Rhythm: regular - Gastrointestinal Gastrointestinal Comment(s): Abdomen is softly distended. Incision is clean and dry, well approximated. There is tenderness in bilateral lower quadrants, 10 out of 10. There is guarding as well as rebound. No CVA tenderness. General gastrointestinal: Present: decreased bowel sounds, distended, tenderness Localized gastrointestinal: tender: RLQ, LLQ, guarding: RLQ, LLQ, rebound: RLQ, LLQ - Integumentary Integumentary: Present: normal - Neurologic Neurologic: Present: CNII-XII intact - Musculoskeletal Musculoskeletal: Present: strength equal bilaterally - Psychiatric Psychiatric: Present: A&O x's 3, appropriate affect, intact judgment & insight - Labs CBC & Chem 7: 11/17/16 15:57 11/16/16 13:30 Labs: Abnormal Lab Results - Last 24 Hours (Table) 11/17/16 Range/Units 15:57 WBC 13.0 H (3.8-10.6) k/uL RBC 3.34 L (3.80-5.40) m/uL Hgb 11.2 L (11.4-16.0) gm/dL Hct 33.1 L (34.0-46.0) % Neutrophils # 10.6 H (1.3-7.7) k/uL Microbiology - Last 24 Hours (Table) 11/16/16 13:30 Urine Culture - Preliminary Urine,Voided Assessment and Plan Plan: At this time I believe the patient has developed bleeding from the previous surgical site. We will return to the operating room for exploratory laparotomy , repair of any surgical defects noted. We will use the same minilaparotomy incision as yesterday. Again reviewed with the patient the risks benefits and alternatives of this plan. All questions answered. Stat CBC has been drawn, pending at this time. Anesthesia staff aware. Patient has been nothing by mouth since approximately 8 AM. Time with Patient: Greater than 30
[2016-11-17] MEDS ORDERED: ACETAMINOPHEN TAB 325 MG TAB PO PRN (17:11)
[2016-11-17] MEDS ORDERED: SUCCINYLCHOLINE CHLORIDE 100 MG/5 ML SYR IV ONE (17:21)
[2016-11-17] MEDS ORDERED: LIDOCAINE 1% INJ 10MG/ML (20 ML MDV) ONE (17:21)
[2016-11-17] MEDS ORDERED: ROCURONIUM BROMIDE 10 MG/ML 10 ML VIAL IV ONE (17:21)
[2016-11-17] MEDS ORDERED: NEOSTIGMINE 1 MG/ML 10 ML VIAL ONE (17:21)
[2016-11-17] MEDS ORDERED: GLYCOPYRROLATE 0.2 MG/ML 2 ML VIAL ONE (17:21)
[2016-11-17] MEDS ORDERED: fentaNYL (PF) 50 MCG/ML 2 ML AMP ONE (17:21)
[2016-11-17] MEDS ORDERED: MIDAZOLAM 2 MG/2 ML VIAL ONE (17:21)
[2016-11-17] MEDS ORDERED: KETOROLAC 30 MG/ML 1 ML VIAL ONE (17:21)
[2016-11-17] MEDS ORDERED: PROPOFOL 10 MG/ML 20 ML VIAL IV ONE (17:21)
[2016-11-17] MEDS ORDERED: SODIUM CHLORIDE 0.9% 50 ML with ceFAZolin 2,000 MG IV ONE ×2 (17:30)
[2016-11-17] MEDS ORDERED: LACTATED RINGERS 1,000 ML IV ONE (17:39)
--- NOTE | 2016-11-17 18:26 | P.OP ---
Date of Procedure: 11/17/16 Preoperative Diagnosis: Severe abdominal pain 24 hours from left salpingectomy, surgical abdomen Postoperative Diagnosis: Right rectus abdominal muscle bleeder, left round ligament defect. Otherwise negative pelvis and abdomen Procedure(s) Performed: Exploratory laparotomy, repair possibly iatrogenic left round ligament defect, repair of rectus abdominal wall bleeder Implants: Anesthesia: GETA Surgeon: Christine Lane Back Tender Cylinder #1: Amarjit Espinosa Estimated Blood Loss (ml): 75 IV fluids (ml): 650 Urine output (ml): 100 Pathology: none sent Condition: stable Disposition: PACU Indications for Procedure: Operative Findings: Description of Procedure: Patient is brought to the operating room where a general anesthetic is administered. 2 g of Ancef were given. The appropriate timeout was performed to assure proper patient and procedural identification. Latex free Pierce catheter is placed to direct drainage. The abdomen is prepped and draped in usual sterile fashion. Steri-Strips are removed. The previously placed subcuticular stitch is opened. Upon opening the subcutaneous cavity there is approximately 25 mL of fresh blood. The fascial stitches identified and opened as well. Upon opening the fascia there is approximately 50 mL of red blood and small dark clots encountered. The O'Abimael-O'Wells retractor is placed into the abdomen and the abdomen is packed with sterile sponges. Thorough evaluation is now undertaken of the anatomy. The previously excised left fallopian tube stump appears hemostatically intact. The left ovary is within normal limits to inspection. The uterus is grasped gently on the round ligaments and elevated. The right fallopian tube and ovary are noted to be normal. The uterus appears small smooth and intact. The pelvis was generously irrigated and inspected carefully. Bilateral sidewalls are clear. Bladder flap is clean and dry. The Pavithra clamps are removed from the round ligaments and the left round ligament contained a small defect which is reapproximated with a single figure of 8 stitch of 3-0 Vicryl. Again the pelvis was reirrigated, and noted to be clean and dry. Peritoneum is reapproximated with 3-0 Vicryl. In inspecting the rectus muscle there is a bleeding vessel noted on the right inferior aspect of the rectus abdominal muscle. This is isolated and electrocautery is used for excellent hemostasis. The remainder of the rectus muscle appears normal. Fascia is closed in a running stitch of 0 Vicryl suture for good reapproximation. Subcutaneous tissue is irrigated and inspected, several small bleeders are noted and cauterized. Hemostasis is excellent. It is reapproximated in a running stitch of 3-0 Vicryl. 4-0 undyed Vicryl issues for final skin closure. Steri-Strips and Mastisol are applied to the wound. Pierce is noted to be draining clear urine. Total estimated blood loss 75 mL, urine production 100 mL , fluid replacement 650 mL's. Patient is brought to the recovery room in stable vital signs including blood pressure 111/69, pulse 59, 99% O2 saturation.
[2016-11-17] MEDS ORDERED: SUMAtriptan SUCCINATE 50 MG TAB PO STA (20:49)
[2016-11-17] MEDS: MORPHINE PCA 30 MG/30 ML SYRINGE IV PRN (21:01)
[2016-11-18] MEDS ORDERED: HYDROcodone/APAP 7.5-325MG 1 EACH TAB PO PRN (06:43)
[2016-11-18 06:58] LABS: Basophils % (A) 0 %; CH 32.3; CHCM 31.9; Eosinophils # (A) 0.1 k/uL (0-0.7); Eosinophils % (A) 1 %; HDW 2.08; HGB 10.9 gm/dL (11.4-16.0); Luc # (Auto) 0.11; Luc % (Auto) 1; Lymphocytes # (A) 1.3 k/uL (1.0-4.8); Lymphocytes % (A) 17 %; MCH 33.4 pg (25.0-35.0); MCHC 32.8 g/dL (31.0-37.0); MCV 101.9 fL (80.0-100.0); Mean Platelet Volume 7.4; Monocytes # (A) 0.5 k/uL (0-1.0); Monocytes % (A) 6 %; Neutrophils # (A) 5.7 k/uL (1.3-7.7); Neutrophils % (A) 74 %; RBC 3.24 m/uL (3.80-5.40); RDW 11.9 % (11.5-15.5); WBC 7.6 k/uL (3.8-10.6)
[2016-11-18] MEDS: KETOROLAC 30 MG/ML 1 ML VIAL IVP PRN ×2 (07:42→14:08)
[2016-11-18] MEDS: SUMAtriptan SUCCINATE 50 MG TAB PO PRN ×2 (07:51→15:13)
[2016-11-18] MEDS: SENNOSIDES-DOCUSATE SODIUM 1 EACH TAB PO SCH ×2 (09:00→20:48)
[2016-11-18] MEDS: LEVOTHYROXINE 100 MCG TAB PO SCH (09:00)
--- NOTE | 2016-11-18 10:32 | CDI ---
In responding to this query, please exercise your independent professional judgment. The [facility] Coding Staff and Clinical Documentation Specialists appreciate your assistance in clarifying documentation, maintaining compliance with coding guidelines, accurately documenting patients condition and capturing severity of illness. The fact that a question is asked does not imply that any particular answer is desired or expected. Communication forms are a method of clarifying documentation and are not made part of the Legal Health Record. Thank you in advance for your clarification. Last Revision, Jul 2016 Hyacinth Diaz [address] [place] [address] Documentation Clarification Form Clinical Validation Review Date: 11/18/2016 10:18:00 AM From: Fiona Ruvalcaba RN, CCDS Admit Date: 11/18/2016 8:58:00 AM Patient Name: Olga Lidia Burrows Visit Number: [id number] Dr. Christine Lane Exploratory laparotomy, repair possibly iatrogenic left round ligament defect, repair of rectus abdominal wall bleeder is documented in the second procedure report. Patients Admitting Diagnosis: Suspected left ruptured ectopic Postoperative Diagnosis: Hemoperitoneum, ruptured left ectopic Procedure performed: Minilaparotomy, left salpingectomy History/Risk Factors: "Known left ectopic , status post methotrexate treatment through 10 days ago, with severe abdominal pain." Clinical Indicators: 11/17 OB Progress Note: "She ambulated the hallways several hours ago without issue. Upon reentering the bed, she began to have abdominal pain. She states that the past several hours the pain has increased to 10 out of 10. I believe the patient has developed bleeding from the previous surgical site. We will return to the operating room for exploratory laparotomy, repair of any surgical defects noted." Treatment: 11/17 Procedure: "Exploratory laparotomy, repair possibly iatrogenic left round ligament defect, repair of rectus abdominal wall bleeder." In order to accurately reflect this patients severity of illness, please clarify if the post-operative diagnosis is: An expected post-procedural or post-surgical condition Integral to the procedure Inherent to the procedure An unexpected post-procedural or post-surgical condition, related to surgical care Other, please specify Unable to determine Please document in your progress notes and discharge summary in order to capture severity of illness and risk of mortality. Include clinical findings that support your diagnosis. FYI: Press F11 to launch patient chart Place X here if this finding has no clinical significance, is not applicable or if you are not able to provide any additional documentation. CONNOR
--- NOTE | 2016-11-18 10:34 | P.PN ---
Subjective Principal diagnosis: Postoperative day #1 Patient awoke this morning with complaint of migraine headache. Minimal flatus. Still complaining of moderate pain. Improved from last night. Objective - Vital Signs Vital signs: Vital Signs Temp 99.1 F 11/18/16 08:00 Pulse 63 11/18/16 08:00 Resp 20 11/18/16 08:00 BP 113/66 11/18/16 08:00 Pulse Ox 97 11/18/16 08:00 Intake & Output 11/17/16 11/18/16 11/18/16 18:59 06:59 18:59 Intake Total 1450 640 800 Output Total 913 390 0376 Balance 775 -160 -200 Intake: IV 1000 Oral 450 640 800 Output: Urine [phone] Uretheral (Pierce) 1000 Estimated Blood Loss 75 Other: Voiding Method Indwelling Catheter Indwelling Catheter # Voids 3 - Constitutional General appearance: Present: average body habitus, cooperative - EENT Eyes: Present: PERRLA ENT: Present: hearing grossly normal - Neck Neck: Present: normal ROM Thyroid: bilateral: normal size - Respiratory Respiratory: bilateral: CTA - Cardiovascular Rhythm: regular - Gastrointestinal Gastrointestinal Comment(s): Abdomen soft, naphthalene still operator, no rebound or guarding. General gastrointestinal: Present: normal bowel sounds - Integumentary Integumentary Comment(s): Skin incision clean and dry, intact, well approximated, Steri-Strips applied. Integumentary: Present: normal - Neurologic Neurologic: Present: CNII-XII intact - Musculoskeletal Musculoskeletal: Present: gait normal - Psychiatric Psychiatric: Present: A&O x's 3 - Labs CBC & Chem 7: 11/18/16 06:24 11/16/16 13:30 Labs: Abnormal Lab Results - Last 24 Hours (Table) 11/17/16 11/18/16 Range/Units 15:57 06:24 WBC 13.0 H (3.8-10.6) k/uL RBC 3.34 L 3.24 L (3.80-5.40) m/uL Hgb 11.2 L 10.9 L (11.4-16.0) gm/dL Hct 33.1 L 33.0 L (34.0-46.0) % MCV 101.9 H (80.0-100.0) fL Plt Count 149 L (150-450) k/uL Neutrophils # 10.6 H (1.3-7.7) k/uL Microbiology - Last 24 Hours (Table) 11/16/16 13:30 Urine Culture - Final Urine,Voided Assessment and Plan Plan: We'll slowly advanced diet and activity today. Imitrex given for headache with good results. Possible discharge home tomorrow. Time with Patient: Greater than 30
--- NOTE | 2016-11-18 10:39 | CDI ---
In responding to this query, please exercise your independent professional judgment. The [facility] Coding Staff and Clinical Documentation Specialists appreciate your assistance in clarifying documentation, maintaining compliance with coding guidelines, accurately documenting patients condition and capturing severity of illness. The fact that a question is asked does not imply that any particular answer is desired or expected. Communication forms are a method of clarifying documentation and are not made part of the Legal Health Record. Thank you in advance for your clarification. Last Revision, April 2015 Hyacinth Diaz [address] [place] [address] Documentation Clarification Form Date: 11/18/2016 10:34:00 AM From: Fiona Ruvalcaba RN, CCDS Admit Date: 11/18/2016 8:58:00 AM Patient Name: Olga Lidia Burrows Visit Number: [id number] Dr. Christine Lane Patient history/risk factors: 11/16 Procedure p-op dx: "Hemoperitoneum, ruptured left ectopic ." Clinical Indicators: 11/17 Procedure Note: "Right rectus abdominal muscle bleeder, left round ligament defect." Hemoglobin: 12.7/11.2/10.9 Hematocrit: 39.5/33.1/33 Treatment: Labs AM Daily In order to capture the severity of condition, please clarify the type of anemia and etiology if known: Acute blood loss anemia Acute on chronic blood loss anemia Chronic blood loss anemia Iron deficiency anemia Hemolytic anemia Drug induced anemia Nutritional anemia Anemia of chronic kidney disease Unable to determine Other, please specify Please document in your progress notes and discharge summary in order to capture severity of illness and risk of mortality. Include clinical findings that support your diagnosis. FYI: Press F11 to launch patient chart. Place X here if this finding has no clinical significance, is not applicable or if you are not able to provide any additional documentation. CONNRO
[2016-11-18] MEDS: HYDROcodone/APAP 7.5-325MG 1 EACH TAB PO PRN ×3 (11:03→20:49)
[2016-11-18 17:13] VITALS: RESP 18
[2016-11-18 21:58] VITALS: PULSE 72
[2016-11-18] MEDS: IBUPROFEN 600 MG TAB PO SCH ×2 (22:03→22:49)
[2016-11-19] MEDS: HYDROcodone/APAP 7.5-325MG 1 EACH TAB PO PRN ×2 (01:10→05:14)
[2016-11-19 01:19] VITALS: BP 95/58; TEMP 97.9
[2016-11-19] MEDS: IBUPROFEN 600 MG TAB PO SCH ×2 (05:15→08:28)
--- NOTE | 2016-11-19 08:06 | P.DS ---
Providers Date of admission: 11/18/16 08:58 Expected date of discharge: 11/19/16 Attending physician: Christine Lane Primary care physician: [facility] Course: This is a 41-year-old female 7 para 2 who presented through the emergency room with a ruptured left ectopic . The ectopic was known, and treated by methotrexate through physicians at [facility]. Patient was admitted with severe pain, sonogram was consistent with our diagnosis. Please see dictated history and physical for details. Patient was taken to the operating room and a mini laparotomy was performed along with a left salpingectomy. She did well intraoperatively with an estimated blood loss of 75 mL's. Left tube was removed after consultation with infertility specialists at [facility], please see my dictated operative note for details. Patient did well through the night, however the following morning after ambulating the halls had severe abdominal pain, rebound and guarding. Decision was made to go back to the OR for exploratory laparotomy at which time a bleeding vessel was noted in the right rectus abdominal muscle. This was easily cared for, the remainder of this is pelvis appeared normal. Please see my dictated operative note for details. This morning the patient is doing very well. She is now voiding, ambulating and passing flatus without difficulty. Vital signs are stable and she is afebrile. Incision is clean and dry, intact, Steri-Strips applied. There are active bowel sounds. She has had a bowel movement. Pain is well tolerated at this point with oral medications. Patient is therefore being discharged home in good condition. She will stay on a vitamin daily. I reminded her no intercourse, tampons or douching. She will use [place] as needed for pain, and a prescription has been provided. She will follow-up in the office with me in 2 weeks. Her IVF program as previously discussed will be likely continued after 6 weeks. Patient Condition at Discharge: Good Plan - Discharge Summary New Discharge Prescriptions: No Action Levothyroxine Sodium [Synthroid] 100 mcg PO DAILY Discharge Medication List Levothyroxine Sodium [Synthroid] 100 mcg PO DAILY 11/16/16 [History] Follow up Appointment(s)/Referral(s): Christine Lane MD [STAFF PHYSICIAN] - 2 Weeks Patient Instructions/Handouts: Salpingectomy (GEN) Discharge Disposition: HOME SELF-CARE
[2016-11-19] MEDS: LEVOTHYROXINE 100 MCG TAB PO SCH (08:39)
[2016-11-19] MEDS: SENNOSIDES-DOCUSATE SODIUM 1 EACH TAB PO SCH (08:39)
--- NOTE | 2016-11-19 11:15 | DS ---
ADDENDUM: DATE OF ADMISSION: 11/18/2016 DATE OF DISCHARGE: 11/19/2016 DATE OF SERVICE: 11/19/2016 Upon discussion with hospital staff, it is to be noted that the right rectus abdominal wall bleeder is considered to be integral to the procedure.
== END 2016-11-19 10:05 | disposition home or self-care (01) | DRG 769 ==
LOC: EC 11:39 → 6PED 15:48 → OBSVTOIN 11-18 08:58
PROVIDERS: ADMIT Obstetrics & Gynecology; ATTEND Obstetrics & Gynecology
PROC: 0UT60ZZ Resection of Left Fallopian Tube, Open Approach (ICD-10-PCS; principal; 2016-11-16 16:00)
PROC: 0MQ Bursae and Ligaments, Repair (ICD-10-PCS; 2016-11-17)
PROC: 0W3G0ZZ Control Bleeding in Peritoneal Cavity, Open Approach (ICD-10-PCS; 2016-11-17)
DX: O08 Complications following ectopic and molar pregnancy (principal); K66.1 Hemoperitoneum; O08.1 Delayed or excessive hemorrhage following ectopic and molar pregnancy; G43.909 Migraine, unspecified, not intractable, without status migrainosus; J30.2 Other seasonal allergic rhinitis; M19.90 Unspecified osteoarthritis, unspecified site; Z79.899 Other long term (current) drug therapy; Z88.5 Allergy status to narcotic agent; Z88.2 Allergy status to sulfonamides; Z88.8 Allergy status to other drugs, medicaments and biological substances; Z91.040 Latex allergy status
CPT/HCPCS: 36415; 76801; 76817; 80053; 81001; 84702; 85025; 86850; 86900; 86901; 87086; 88305; 96361; 96374; 96375; 99285

== ENCOUNTER → 2018-01-05 | Outpatient (CLI) | payer OTHER ==
[2018-01-05 08:15] LABS: Basophils % (A) 0 %; Eosinophils # (A) 0.1 k/uL (0-0.7); Eosinophils % (A) 1 %; HCT 38.5 % (34.0-46.0); HGB 12.5 gm/dL (11.4-16.0); Lymphocytes # (A) 1.2 k/uL (1.0-4.8); Lymphocytes % (A) 20 %; MCH 31.9 pg (25.0-35.0); MCHC 32.5 g/dL (31.0-37.0); MCV 98.2 fL (80.0-100.0); Monocytes # (A) 0.2 k/uL (0-1.0); Monocytes % (A) 4 %; Neutrophils # (A) 4.4 k/uL (1.3-7.7); Neutrophils % (A) 74 %; Platelet Count 261 k/uL (150-450); RBC 3.92 m/uL (3.80-5.40); RDW 12.5 % (11.5-15.5); WBC 5.9 k/uL (3.8-10.6)
[2018-01-05 08:36] LABS: ALT 23 U/L (9-52); AST 18 U/L (14-36); Albumin 4.2 g/dL (3.5-5.0); Alkaline Phosphatase 51 U/L (38-126); Anion Gap 11 mmol/L; Blood Urea Nitrogen 10 mg/dL (7-17); Calcium 9.3 mg/dL (8.4-10.2); Carbon Dioxide 19 mmol/L (22-30); Chloride 109 mmol/L (98-107); Cholesterol 196 mg/dL (<200); Glucose 114 mg/dL (74-99); HDL Cholesterol 44 mg/dL (40-60); LDL Cholesterol,Calculated 136 mg/dL (0-99); Potassium 4.2 mmol/L (3.5-5.1); Sodium 139 mmol/L (137-145); Total Bilirubin 0.8 mg/dL (0.2-1.3); Total Protein 6.9 g/dL (6.3-8.2); Triglycerides 78 mg/dL (<150)
[2018-01-05 18:52] LABS: Clam IgE <0.10 kU/L; Codfish IgE <0.10 kU/L; Egg White IgE <0.10 kU/L; Peanut IgE <0.10 kU/L; Scallop IgE <0.10 kU/L; Shrimp IgE <0.10 kU/L; Soybean IgE <0.10 kU/L; Walnut IgE (Food) <0.10 kU/L
[2018-01-05 19:05] LABS: Gliadin AB IgA, Unit 1.1 U/mL
[2018-01-05 19:28] LABS: Hemoglobin A1C 5.3 % (4.0-6.0)
[2018-01-06 12:45] LABS: Almond IgE <0.35 kU/L (<0.35); Almond IgE Class CLASS 0; Brazil Nut IgE <0.35 kU/L (<0.35); Brazil Nut IgE Class CLASS 0; Cashew IgE <0.35 kU/L (<0.35); Hazelnut IgE <0.35 kU/L (<0.35); Hazelnut IgE Class CLASS 0; Macadamia Nut IgE <0.35 kU/L (<0.35); Macadamia Nut IgE Class CLASS 0; Peanut IgE <0.35 kU/L (<0.35); Pecan IgE <0.35 kU/L (<0.35); Pecan IgE Class CLASS 0; Pine Nut, Pignoles IgE <0.35 kU/L (<0.35); Pistachio IgE Class CLASS 0; Sweet Chestnut IgE <0.35 kU/L (<0.35); Walnut (Food) IgE Class CLASS 0; Walnut IgE (Food) <0.35 kU/L (<0.35)
[2018-01-06 14:28] LABS: Lobster IgE <0.35 kU/L (<0.35); Lobster IgE Class CLASS 0; Snail IgE <0.35 kU/L (<0.35)
[2018-01-07 12:42] LABS: Cheddar Cheese IgE <0.35 kU/L (<0.35); Cheddar Cheese IgE Class CLASS 0; Codfish IgE <0.35 kU/L (<0.35); Codfish IgE Class CLASS 0; Crab IgE <0.35 kU/L (<0.35); Crab IgE Class CLASS 0; Mussel IgE <0.35 kU/L (<0.35); Mussel IgE Class CLASS 0; Salmon IgE <0.35 kU/L (<0.35); Salmon IgE Class CLASS 0; Shrimp IgE <0.35 kU/L (<0.35); Shrimp IgE Class CLASS 0; Tuna IgE <0.35 kU/L (<0.35); Tuna IgE Class CLASS 0
== END | disposition home or self-care (01) ==
LOC: LABWHC1 07:42
PROVIDERS: ATTEND Family Medicine
DX: Z00.00 Encounter for general adult medical examination without abnormal findings (principal); E03.9 Hypothyroidism, unspecified; R73.9 Hyperglycemia, unspecified; Z91.018 Allergy to other foods; Z11.1 Encounter for screening for respiratory tuberculosis
CPT/HCPCS: 36415; 80053; 80061; 82785; 83036; 83516; 84439; 84443; 85025; 86003

== ENCOUNTER 2018-08-08 09:29 | Emergency (ER) | payer OTHER ==
[2018-08-08 09:40] VITALS: RESP 18
[2018-08-08] MEDS ORDERED: SODIUM CHLORIDE 0.9% 1,000 ML IV STA (10:10)
--- NOTE | 2018-08-08 10:16 | ED ---
General Adult HPI - General Chief complaint: Abdominal Pain Stated complaint: Abd pain Time Seen by Provider: 08/08/18 09:58 Source: patient, RN notes reviewed, old records reviewed Mode of arrival: ambulatory Limitations: no limitations - History of Present Illness Initial comments: 43-year-old female patient with past medical history of status post salpingectomy one year ago for ectopic presents in ED with right lower quadrant abdominal pain. Patient states this pain began approximately 8 AM this morning. Patient describes as a sharp stabbing pain for approximately 40 minutes. Patient states that the pain has been improving. Patient has additionally complained of nausea without emesis. Patient denies any fevers or chills, vomiting or diarrhea. Patient denies all other complaints. Systemic: Pt denies fatigue, myalgia, fever/chills, rash. Pt denies weakness, night sweats, weight loss. Neuro: Pt denies headache, visual disturbances, syncope or pre-syncope. HEENT: Pt denies ocular discharge or irritation, otalgia, rhinorrhea, pharyngitis or notable lymphadenopathy. Cardiopulmonary: Pt denies chest pain, SOB, heart palpitations, dyspnea on exertion. Abdominal/GI: Pt denies abdominal pain, n/v/d. : Pt denies dysuria, burning w/ urination, frequency/urgency. Denies new onset urinary or bowel incontinence. MSK: Pt denies myalgia, loss of strength or function in extremities. Neuro: Pt denies new onset weakness, paresthesias. - Related Data Home Medications Medication Instructions Recorded Confirmed SUMAtriptan SUCCINATE [Imitrex] 100 mg PO DAILY PRN 04/02/17 08/08/18 Levothyroxine Sodium [Synthroid] 88 mcg PO DAILY 08/08/18 08/08/18 [id number] Acid 1 cap PO DAILY 08/08/18 08/08/18 [-U Capsule (formulary)] Topiramate [Topamax] 100 mg PO DAILY 08/08/18 08/08/18 Allergies Allergy/AdvReac Type Severity Reaction Status Date / Time codeine Allergy Rash/Hives Verified 08/08/18 10:03 hydromorphone [From Dilaudid] Allergy Itching Verified 08/08/18 10:03 latex Allergy Itching Verified 08/08/18 10:03 medroxyprogesterone acetate Allergy Rash/Hives Verified 08/08/18 10:03 [From Provera] Sulfa (Sulfonamide Allergy Rash/Hives Verified 08/08/18 10:03 Antibiotics) adhesive AdvReac Unknown Rash/Hives Verified 08/08/18 10:03 Review of Systems ROS Statement: Those systems with pertinent positive or pertinent negative responses have been documented in the HPI. ROS Other: All systems not noted in ROS Statement are negative. Past Medical History Past Medical History: GERD/Reflux, Thyroid Disorder Additional Past Medical History / Comment(s): ENVIRONMENTAL ALLERGIES., HX GESTATIONAL DIABETES., THORACIC OUTLET SYNDROME., MIGRAINES. History of Any Multi-Drug Resistant Organisms: None Reported Additional Past Surgical History / Comment(s): FIRST RIB REMOVED FOR THORACIC OUTLET SYNDROME. cyst removed from yazdanism, SALPINGECTOMY . Past Anesthesia/Blood Transfusion Reactions: No Reported Reaction Past Psychological History: No Psychological Hx Reported Smoking Status: Never smoker Past Alcohol Use History: None Reported Past Drug Use History: None Reported - Past Family History Mother Family Medical History: No Reported History General Exam - General Exam Comments Initial Comments: Constitutional: NAD, AOX3, Pt has pleasant affect. HEENT: NC/AT, trachea midline, neck supple, no lymphadenopathy. Posterior pharynx non erythematous, without exudates. External ears appear normal, without discharge. Mucous membranes moist. Eyes PERRLA, EOM intact. There is no scleral icterus. No pallor noted. Cardiopulmonary: RRR, no murmurs, rubs or gallops, no JVD noted. Lungs CTAB in anterior and posterior virgen. No peripheral edema. Abdominal exam: Abdomen soft and non-distended. Abdomen mildly tender to palpation in right lower quadrant region. Rsvings and psoas sign negative. Bowel sounds active in LLQ. No hepatosplenomegaly. No ecchymosis Neuro: CN II-XII intact. No nuchal rigidity. MSK: No posterior calf tenderness bilaterally, homans sign negative bilaterally. Posterior tibialis and radial pulse +2 bilaterally. Sensation intact in upper and lower extremities. Full active ROM in upper and lower extremities, 5/5 stregnth. Limitations: no limitations Course Vital Signs 08/08/18 08/08/18 08/08/18 09:36 12:25 12:48 Temperature 98 F 97.8 F Pulse Rate 64 62 Respiratory 18 18 Rate Blood Pressure 125/80 115/69 O2 Sat by Pulse 100 99 Oximetry Medical Decision Making - Medical Decision Making 43-year-old female patient with past medical history of status post salpingectomy one year ago for ectopic presents in ED with right lower quadrant abdominal pain. Patient states this pain began approximately 8 AM this morning. Patient describes as a sharp stabbing pain for approximately 40 minutes. Patient states that the pain has been improving. Patient has additionally complained of nausea without emesis. Patient denies any fevers or chills, vomiting or diarrhea. Patient denies all other complaints. Patient vital signs stable, afebrile. Physical exam displayed mild right lower quadrant pain. LAboratory investigations revealed non-impressive CBC, CMP. UA negative, hCG negative. CT abdomen and pelvis displayed findings possibly consistent with enteritis. These findings were explained to patient at length, pt verbalized understanding. Patient's pain resolved. Patient to follow up with primary care provider in 1-2 days. Patient to return to ED if new signs symptoms develop or if condition worsens in any way. Case discussed with Dr. Flores. - Lab Data Result diagrams: 08/08/18 10:14 08/08/18 10:14 Lab Results 08/08/18 08/08/18 08/08/18 Range/Units 10:14 10:14 10:14 WBC 6.1 (3.8-10.6) k/uL RBC 4.24 (3.80-5.40) m/uL Hgb 13.5 (11.4-16.0) gm/dL Hct 42.8 (34.0-46.0) % MCV 101.0 H (80.0-100.0) fL MCH 31.9 (25.0-35.0) pg MCHC 31.6 (31.0-37.0) g/dL RDW 11.7 (11.5-15.5) % Plt Count 266 (150-450) k/uL Neutrophils % 74 % Lymphocytes % 18 % Monocytes % 4 % Eosinophils % 2 % Basophils % 1 % Neutrophils # 4.5 (1.3-7.7) k/uL Lymphocytes # 1.1 (1.0-4.8) k/uL Monocytes # 0.3 (0-1.0) k/uL Eosinophils # 0.1 (0-0.7) k/uL Basophils # 0.0 (0-0.2) k/uL Sodium 142 (137-145) mmol/L Potassium 3.7 (3.5-5.1) mmol/L Chloride 108 H (98-107) mmol/L Carbon Dioxide 25 (22-30) mmol/L Anion Gap 9 mmol/L BUN 12 (7-17) mg/dL Creatinine 0.64 (0.52-1.04) mg/dL Est GFR (CKD-EPI)AfAm >90 (>60 ml/min/1.73 sqM) Est GFR (CKD-EPI)NonAf >90 (>60 ml/min/1.73 sqM) Glucose 115 H (74-99) mg/dL Calcium 9.7 (8.4-10.2) mg/dL Total Bilirubin 0.4 (0.2-1.3) mg/dL AST 27 (14-36) U/L ALT 27 (9-52) U/L Alkaline Phosphatase 48 (38-126) U/L Total Protein 7.9 (6.3-8.2) g/dL Albumin 4.6 (3.5-5.0) g/dL Lipase 191 (23-300) U/L Urine Color Urine Appearance (Clear) Urine pH (5.0-8.0) Ur Specific [place] (1.001-1.035) Urine Protein (Negative) Urine Glucose (UA) (Negative) Urine Ketones (Negative) Urine Blood (Negative) Urine Nitrite (Negative) Urine Bilirubin (Negative) Urine Urobilinogen (<2.0) mg/dL Ur Leukocyte Esterase (Negative) Urine HCG, Qual Not Detected (Not Detectd) 08/08/18 Range/Units 10:14 WBC (3.8-10.6) k/uL RBC (3.80-5.40) m/uL Hgb (11.4-16.0) gm/dL Hct (34.0-46.0) % MCV (80.0-100.0) fL MCH (25.0-35.0) pg MCHC (31.0-37.0) g/dL RDW (11.5-15.5) % Plt Count (150-450) k/uL Neutrophils % % Lymphocytes % % Monocytes % % Eosinophils % % Basophils % % Neutrophils # (1.3-7.7) k/uL Lymphocytes # (1.0-4.8) k/uL Monocytes # (0-1.0) k/uL Eosinophils # (0-0.7) k/uL Basophils # (0-0.2) k/uL Sodium (137-145) mmol/L Potassium (3.5-5.1) mmol/L Chloride (98-107) mmol/L Carbon Dioxide (22-30) mmol/L Anion Gap mmol/L BUN (7-17) mg/dL Creatinine (0.52-1.04) mg/dL Est GFR (CKD-EPI)AfAm (>60 ml/min/1.73 sqM) Est GFR (CKD-EPI)NonAf (>60 ml/min/1.73 sqM) Glucose (74-99) mg/dL Calcium (8.4-10.2) mg/dL Total Bilirubin (0.2-1.3) mg/dL AST (14-36) U/L ALT (9-52) U/L Alkaline Phosphatase (38-126) U/L Total Protein (6.3-8.2) g/dL Albumin (3.5-5.0) g/dL Lipase (23-300) U/L Urine Color Light Yellow Urine Appearance Clear (Clear) Urine pH 7.0 (5.0-8.0) Ur Specific [place] 1.008 (1.001-1.035) Urine Protein Negative (Negative) Urine Glucose (UA) Negative (Negative) Urine Ketones Negative (Negative) Urine Blood Negative (Negative) Urine Nitrite Negative (Negative) Urine Bilirubin Negative (Negative) Urine Urobilinogen <2.0 (<2.0) mg/dL Ur Leukocyte Esterase Negative (Negative) Urine HCG, Qual (Not Detectd) Disposition Clinical Impression: Abdominal pain Disposition: HOME SELF-CARE Condition: Stable Instructions (If sedation given, give patient instructions): Abdominal Pain (ED ) Additional Instructions: Patient to adhere to previously discussed treatment plan and will take medication(s) as directed. Patient to follow up with PCP in 1-2 days. Patient to return to ED if symptoms do not improve. Please follow up with primary care provider. Please return to ER if condition worsens in anyway or new signs or symptoms develop. Is patient prescribed a controlled substance at d/c from ED?: No Referrals: Herrera Simon MD [Primary Care Provider] - 1-2 days
[2018-08-08 10:50] LABS: Appearance,Urine Clear (Clear); Bilirubin,Urine Negative (Negative); Blood,Urine Negative (Negative); Color,Urine Light Yellow; Glucose,Urine (UA) Negative (Negative); Ketones,Urine Negative (Negative); Leukocyte Esterase,Urine Negative (Negative); Nitrite,Urine Negative (Negative); Protein,Urine Negative (Negative); Specific Gravity,Urine 1.008 (1.001-1.035); Urobilinogen,Urine <2.0 mg/dL (<2.0)
[2018-08-08 10:51] LABS: Basophils % (A) 1 %; Eosinophils # (A) 0.1 k/uL (0-0.7); Eosinophils % (A) 2 %; HCT 42.8 % (34.0-46.0); HGB 13.5 gm/dL (11.4-16.0); Lymphocytes # (A) 1.1 k/uL (1.0-4.8); Lymphocytes % (A) 18 %; MCH 31.9 pg (25.0-35.0); MCHC 31.6 g/dL (31.0-37.0); Mean Platelet Volume 6.9; Monocytes # (A) 0.3 k/uL (0-1.0); Monocytes % (A) 4 %; Neutrophils # (A) 4.5 k/uL (1.3-7.7); Neutrophils % (A) 74 %; Platelet Count 266 k/uL (150-450); RBC 4.24 m/uL (3.80-5.40); RDW 11.7 % (11.5-15.5); WBC 6.1 k/uL (3.8-10.6)
[2018-08-08] MEDS ORDERED: KETOROLAC 30 MG/ML 1 ML VIAL IVP STA (11:05)
[2018-08-08] MEDS ORDERED: ONDANSETRON 4 MG/2 ML VIAL IVP STA (11:05)
[2018-08-08 11:07] LABS: ALT 27 U/L (9-52); AST 27 U/L (14-36); Albumin 4.6 g/dL (3.5-5.0); Alkaline Phosphatase 48 U/L (38-126); Anion Gap 9 mmol/L; Blood Urea Nitrogen 12 mg/dL (7-17); Calcium 9.7 mg/dL (8.4-10.2); Carbon Dioxide 25 mmol/L (22-30); Chloride 108 mmol/L (98-107); Glucose 115 mg/dL (74-99); Lipase 191 U/L (23-300); Sodium 142 mmol/L (137-145); Total Bilirubin 0.4 mg/dL (0.2-1.3); Total Protein 7.9 g/dL (6.3-8.2)
[2018-08-08 11:08] LABS: Potassium 3.7 mmol/L (3.5-5.1)
[2018-08-08] MEDS ORDERED: diphenhydrAMINE 50 MG/ML 1 ML VIAL IVP STA (11:48)
[2018-08-08] MEDS ORDERED: METOCLOPRAMIDE 5 MG/ML 2 ML VIAL IVP STA (11:48)
--- NOTE | 2018-08-08 11:53 | CT ---
EXAMINATION TYPE: CT abdomen pelvis w con DATE OF EXAM: 08/08/2018 COMPARISON: CT abdomen pelvis 04/02/2017 HISTORY: Pain CT DLP: 653.9 mGycm Automated exposure control for dose reduction was used. TECHNIQUE: Helical acquisition of images from the lung bases through the pelvis have been completed. CONTRAST: Performed without Oral Contrast and with IV Contrast, patient injected with 100 mL of Isovue 300. FINDINGS: LUNG BASES: No significant abnormality is appreciated. AORTA: No significant abnormality is appreciated. LIVER/GB: No significant abnormality is appreciated. Gallbladder is thought to be contracted. PANCREAS: No significant abnormality is seen. SPLEEN: No significant abnormality is seen. ADRENALS: No significant abnormality is seen. KIDNEYS: No significant abnormality is seen. REPRODUCTIVE ORGANS: Uterus and ovaries unremarkable as seen BOWEL: Some small bowel loops show wall thickening. Appendix unremarkable. FREE AIR: No Free Air visible. ASCITES: None visible. PELVIC ADENOPATHY: None visualized. RETROPERITONEAL ADENOPATHY: No Retroperitoneal Adenopathy visible. URINARY BLADDER: No significant abnormality is seen. OSSEOUS STRUCTURES: No significant abnormality is seen. IMPRESSION: CORRELATE FOR POSSIBLE ENTERITIS, FOLLOW-UP INDICATED.
[2018-08-08 12:32] VITALS: BP 115/69; PULSE 62
[2018-08-08 12:49] VITALS: TEMP 97.8
== END 2018-08-08 12:49 | disposition home or self-care (01) ==
LOC: EC 09:29
DX: R10.31 Right lower quadrant pain (principal); R11.0 Nausea; E07.9 Disorder of thyroid, unspecified; Z88.2 Allergy status to sulfonamides; Z88.5 Allergy status to narcotic agent; Z88.8 Allergy status to other drugs, medicaments and biological substances; Z91.040 Latex allergy status; Z91.09 Other allergy status, other than to drugs and biological substances; Z79.890 Hormone replacement therapy; Z79.899 Other long term (current) drug therapy; Z86.69 Personal history of other diseases of the nervous system and sense organs; Z87.19 Personal history of other diseases of the digestive system; Z90.79 Acquired absence of other genital organ(s); Z87.59 Personal history of other complications of pregnancy, childbirth and the puerperium
CPT/HCPCS: 36415; 80053; 83690; 85025; 81003; 81025; 74177; 99284; 96374; 96375 ×3; 96361 ×2; J1200; J2765; J2405; J1885; Q9967

== ENCOUNTER → 2022-12-01 | Outpatient (CLI) | payer OTHER ==
[2022-12-01 13:42] LABS: Partial Thromboplastin Time 22.3 sec (22.0-30.0); Prothrombin Time 10.5 sec (9.0-12.0)
[2022-12-01 20:38] LABS: % Iron Saturation 13.78 (12.00-45.00); C Reactive Protein <0.30 mg/dL (0.00-0.80); Iron 51 UG/DL (50-170); Total Iron Binding Capacity 370 UG/DL (228-460)
[2022-12-01 21:26] LABS: Thyroid Peroxidase Antibodies 9.3 U/mL (0.0-33.0)
[2022-12-01 22:04] LABS: HCT 40.3 % (37.2-46.3); HGB 12.7 d/dL (12.0-15.0); MCH 31.9 pg (27.0-32.0); MCHC 31.5 d/dL (32.0-37.0); MCV 101.3 FL (80.0-97.0); Mean Platelet Volume 11.1 FL (9.5-12.2); NRBC Per 100 WBC 0 X 10*3/uL (0.00-0.01); Platelet Count 284 X 10*3/uL (140-440); RBC 3.98 X 10*6/uL (4.10-5.20); RDW 11.9 % (11.5-14.5); WBC 4.82 X 10*3/uL (4.50-10.00)
[2022-12-01 23:15] LABS: Cardiolipin IgA Antibody <2.0 U/mL
[2022-12-01 23:16] LABS: Cardiolipin Ab IgG Interp Negative (Negative)
[2022-12-01 23:20] LABS: Cardiolipin Ab IgM Interp Negative (Negative); Cardiolipin IgM Antibody 3.3 U/mL
[2022-12-01 23:32] LABS: Erythrocyte Sedimentation Rate 13 mm/Hr (0-20)
[2022-12-02 11:36] LABS: Protein S Antigen 95 % (50 - 140)
[2022-12-02 14:04] LABS: APTT 36 Sec(s) (<43); Dilute Russell Viper Venom 36 Sec(s) (<44)
== END | disposition home or self-care (01) ==
LOC: LABWHC1 11:24
PROVIDERS: ATTEND Family Medicine
DX: Z00.00 Encounter for general adult medical examination without abnormal findings (principal); I73.00 Raynaud's syndrome without gangrene; G43.909 Migraine, unspecified, not intractable, without status migrainosus; D68.59 Other primary thrombophilia; E03.9 Hypothyroidism, unspecified; R58 Hemorrhage, not elsewhere classified
CPT/HCPCS: 36415; 80061; 81241; 82607; 82728; 82941; 83525; 83540; 83550; 84206; 84439; 84443; 84481; 85027; 85303; 85305; 85610; 85613; 85652; 85730; 86038; 86140; 86147; 86376

== ENCOUNTER → 2022-12-01 | Outpatient (CLI) | payer OTHER ==
--- NOTE | 2022-12-02 10:18 | CA ---
Transthoracic Echo Report Name: Olga Lidia Kyle Age: 47 Gender: F : 1975 Exam Date: 12/01/2022 10:50 Exam Location: [facility] Ht (in): 68 Wt (lb): 120 Ordering Physician: Herrera Simon MD Attending/Referring Phys: Emy Franco [facility] Conference Concierge Isabella Membreno RDCS Procedure CPT: Indications: R06.09 Other forms of dyspnea Cardiac Hx: Technical Quality: Good Contrast 1: Total Dose (mL): Contrast 2: Total Dose (mL): MEASUREMENTS (Male / Female) Normal Values 2D ECHO LV Diastolic Diameter PLAX 4.0 cm 4.2 - 5.9 / 3.9 - 5.3 cm LV Systolic Diameter PLAX 2.5 cm IVS Diastolic Thickness 1.0 cm 0.6 - 1.0 / 0.6 - 0.9 cm LVPW Diastolic Thickness 1.0 cm 0.6 - 1.0 / 0.6 - 0.9 cm LV Relative Wall Thickness 0.5 RV Internal Dim ED PLAX 2.4 cm LA Systolic Diameter LX 2.7 cm 3.0 - 4.0 / 2.7 - 3.8 cm LV Diastolic Volume MOD 4C 52.7 cm??? LV Systolic Volume MOD 4C 19.5 cm??? LV Ejection Fraction MOD 4C 63.1 % LV Cardiac Index MOD 4C 1202.3 cm???/min???m??? LV Diastolic Length 4C 6.8 cm LV Systolic Length 4C 5.2 cm LV Diastolic Volume MOD 2C 61.6 cm??? LV Systolic Volume MOD 2C 25.8 cm??? LV Ejection Fraction MOD 2C 58.2 % LV Cardiac Index MOD 2C 1296.7 cm???/min???m??? LV Diastolic Length 2C 7.3 cm LV Systolic Length 2C 5.5 cm LA Volume 33.9 cm??? 18 - 58 / 22 - 52 cm??? M-MODE Aortic Root Diameter MM 2.8 cm MV E Point Septal Separation 0.5 cm AV Cusp Separation MM 1.7 cm DOPPLER AV Peak Velocity 115.4 cm/s AV Peak Gradient 5.3 mmHg MV Area PHT 3.4 cm??? Mitral E Point Velocity 110.6 cm/s Mitral A Point Velocity 71.3 cm/s Mitral E to A Ratio 1.6 MV Deceleration Time 225.2 ms MV E' Velocity 9.8 cm/s Mitral E to MV E' Ratio 11.3 TR Peak Velocity 197.4 cm/s TR Peak Gradient 15.6 mmHg Right Ventricular Systolic Press 20.6 mmHg FINDINGS Left Ventricle Left ventricular ejection fraction is estimated at 55-60 %. Left ventricular cavity size normal. Left ventricular wall thickness normal. Normal left ventricular wall motion. Right Ventricle Normal right ventricular size and function. Right ventricular systolic pressure within normal limits. Right Atrium Normal right atrial size. Left Atrium Normal left atrial size. Mitral Valve Structurally normal mitral valve. No mitral stenosis, regurgitation or prolapse. Aortic Valve Trileaflet aortic valve. No aortic valve stenosis or regurgitation. Tricuspid Valve Structurally normal tricuspid valve. Trace tricuspid regurgitation. Pulmonic Valve No pulmonic stenosis. No pulmonic regurgitation. Pericardium Normal pericardium. No pericardial effusion. Aorta Normal size aortic root and proximal ascending aorta. CONCLUSIONS Normal LV size and systolic function. No significant abnormality in the Doppler exam. No pericardial effusion Previewed by: Dr. Dante Vincent MD (Electronically Signed) Final Date: 02 December 2022 10:17
== END | disposition home or self-care (01) ==
LOC: RADECHMAIN 10:29
PROVIDERS: ATTEND Family Medicine
DX: R06.09 Other forms of dyspnea (principal)
CPT/HCPCS: 93306

== ENCOUNTER → 2022-12-30 | Outpatient (CLI) | payer OTHER ==
--- NOTE | 2022-12-31 09:37 | US ---
EXAMINATION TYPE: US thyroid st tissue head/neck DATE OF EXAM: 12/30/2022 COMPARISON: NONE CLINICAL INDICATION: Female, 47 years old with history of E03.9 HYPOTHYROIDISM, UNSPECIFIED; Hypothyr oidism since 2017, on thyroid meds GLAND SIZE: Right Lobe: 4.5x1.1x1.2 cm Overall Parenchyma: homogenous Left Lobe: 3.4x0.7x1.1 cm Overall Parenchyma: Homogenous Isthmus Thickness: 0.1 cm NODULES RIGHT: # of nodules measured on right: 0 LEFT: # of nodules measured on left: 0 ISTHMUS: # of nodules measured in the isthmus: 0 Bilateral neck scanned, no evidence of lymphadenopathy. Thyroid appears atrophic, prominent vessels noticed throughout IMPRESSION: No evidence for thyroid nodules.
== END | disposition home or self-care (01) ==
LOC: RADUSWWP 16:40
PROVIDERS: ATTEND Family Medicine
DX: E03.9 Hypothyroidism, unspecified (principal)
CPT/HCPCS: 76536